=== PATIENT | female | born 1990 | race Caucasian/White ===

== ENCOUNTER 2023-02-24 10:20 | Outpatient (CLI) | payer MEDICAID, SELFPAY | END 2023-02-24 10:21 | disposition home or self-care (01) | PROVIDERS: Visit Provider Advanced Practice Midwife | DX: Z34.91 Encounter for supervision of normal pregnancy, unspecified, first trimester (principal); Z3A.10 10 weeks gestation of pregnancy | CPT/HCPCS: 86592; 86703; 86704; 86706; 86762; 86787; 86803; 86850; 86900; 86901; 87086; 87340 ==

== ENCOUNTER 2023-03-15 14:20 | Outpatient (CLI) | payer MEDICAID, SELFPAY | END 2023-03-15 14:21 | disposition home or self-care (01) | LOC: NFLDREF 14:20 | PROVIDERS: Visit Provider Obstetrics & Gynecology | DX: L65.9 Nonscarring hair loss, unspecified (principal) | CPT/HCPCS: 84443 ==

== ENCOUNTER 2023-05-10 15:39 | Outpatient (CLI) | payer MEDICAID, SELFPAY ==
--- NOTE | 2023-05-10 16:00 | CRLHL7_ITS ---
For Patients: As a result of the Century Cures Act, medical imaging exams and procedure reports are released immediately into your electronic medical record. You may view this report before your referring provider. If you have questions, please contact your health care provider. INDICATION: survey. TECHNIQUE: Conventional transabdominal two-dimensional grayscale ultrasound examination. COMPARISON: None. FINDINGS: There is a living fetus with gestational age of 21 weeks 1 day by LMP and 21 weeks 3 days by today`s measurements. EDC based on LMP is 09/19/2023. BPD: 5.3 cm, 22 weeks Head circumference: 19.1 cm, 21 weeks 3 days Abdominal circumference: 16.4 cm, 21 weeks 3 days Femur length: 3.7 cm, 21 weeks 5 days The weight is estimated at 434 grams, the 68th percentile. The heart rate is measured at 142 beats per minute and the rhythm appears regular. The head and spine are grossly intact. No gross facial abnormality is evident. The upper lip is intact. Four cardiac chambers are demonstrated. The heart and stomach appear to be on the same side. The diaphragm is intact. Two kidneys and a bladder are demonstrated. The cord insertion is normal and three cord vessels are noted. Four extremities are demonstrated. The amniotic fluid volume is within normal limits. The placenta is posterior with no evidence of previa. The cervical length is normal at 3.7 cm. IMPRESSION: 1. Living fetus with gestational age of 21 weeks 1 day by LMP and 21 weeks 3 days by today`s measurements. EDC based on LMP is 09/19/2023. 2. No anomaly evident. Dictated by Dru Moore MD @ 05/11/2023 9:31:22 AM (Electronically Signed)
== END 2023-05-10 15:40 | disposition home or self-care (01) ==
LOC: US 15:40
PROVIDERS: Visit Provider Obstetrics & Gynecology
DX: Z34.92 Encounter for supervision of normal pregnancy, unspecified, second trimester (principal); Z3A.21 21 weeks gestation of pregnancy
CPT/HCPCS: 76805; T1013

== ENCOUNTER 2023-06-28 13:20 | Outpatient (CLI) | payer MEDICAID, SELFPAY | END 2023-06-28 13:21 | disposition home or self-care (01) | LOC: NFLDREF 07-01 06:24 | PROVIDERS: Visit Provider Obstetrics & Gynecology | DX: Z34.93 Encounter for supervision of normal pregnancy, unspecified, third trimester (principal); Z3A.28 28 weeks gestation of pregnancy | CPT/HCPCS: 86592 ==

== ENCOUNTER 2023-08-09 14:14 | Outpatient (CLI) | payer MEDICAID, SELFPAY ==
[2023-08-09 14:32] VITALS: BP 117/75; PULSE 97
[2023-08-09 14:33] VITALS: PULSE 94; O2SAT 98
[2023-08-09 14:45] LABS: Appearance Urine Slightly Cloudy (Clear); Bilirubin Urine Negative (Negative); Blood Urine Negative (Negative); Color Urine Yellow (Yellow); Glucose Urine Negative (Negative); Ketones Urine Negative (Negative); Leukocyte Esterase Urine 1+ (Negative); Nitrite Urine Negative (Negative); Protein Urine Negative (Negative); Urobilinogen Urine 0.2 (0.2-1.0); pH Urine 7.5 (5.0-8.5)
[2023-08-09] MEDS: LACTATED RINGERS 1000 ML 1,000 ML 500 ML IV (15:12)
[2023-08-09 15:19] LABS: RBC Urine 0-2 (0-2)
[2023-08-09 15:20] LABS: Bacteria Urine Few; Squamous Epithelial Cell Urine Few (None-Few)
--- NOTE | 2023-08-09 16:59 | PC.OBNST ---
NST Note NST Note Start: 08/09/23 14:17 Freq: ONCE Status: Active Protocol: Document 08/09/23 16:54 AMARILIS (Rec: 08/09/23 16:59 AMARILIS [id number]) NST Note 3 Para (# of births) 2 EDC 09/19/23 Gestational Age In Weeks & Days 34 Weeks & 1 Days Patient Presented with Complaint(s) of Decreased movement Other Complaints Pt. was seen for visit in [facility] and a variable decel was noted . Pt. had also reported decreased movement. Dr. Cipriano Jamison wanted further monitoring, UA (sent for culture) and IVF's. Reactive Yes Appropriate for Gestational Age Yes ED Wall Date 08/09/23 Reactive Yes Appropriate for Gestational Age Yes ED Evans Date 08/09/23 OB NST charge Yes Complete NST Note via Write Note Yes The provider's electronic signature indicates the NST is reactive/appropriate for gestational age. *Note to provider: If an addendum is required, open the patient's chart and click on the note under the Nurse/Allied Health tab.
== END 2023-08-09 16:45 | disposition home or self-care (01) ==
LOC: OB OUT 14:14 → OB 14:15
PROVIDERS: Visit Provider Obstetrics & Gynecology
DX: O36.8130 Decreased fetal movements, third trimester, not applicable or unspecified (principal); Z3A.34 34 weeks gestation of pregnancy
CPT/HCPCS: 59025; 81001; 81003; 87086; G0463; J7120

== ENCOUNTER 2023-08-26 11:31 | Outpatient (CLI) | payer MEDICAID, SELFPAY ==
[2023-08-27 14:08] LABS: Strep B DNA Probe Negative (Negative)
[2023-08-27 14:50] LABS: Strep B Susceptibility Needed? No
== END 2023-08-26 11:32 | disposition home or self-care (01) ==
LOC: NFLDREF 11:32
PROVIDERS: Visit Provider Obstetrics & Gynecology
DX: Z34.93 Encounter for supervision of normal pregnancy, unspecified, third trimester (principal); Z3A.36 36 weeks gestation of pregnancy
CPT/HCPCS: 87081; 87653

== ENCOUNTER 2023-09-14 10:33 | Inpatient (IN) | payer MEDICAID, SELFPAY ==
[2023-09-14] VITALS (21 sets, daily range): BP systolic 92–164; BP diastolic 60–92; PULSE 86–116; RESP 16; TEMP 36.6–37.1; O2SAT 98–99
--- NOTE | 2023-09-14 10:37 | P.OBHP_ITS ---
OB - H&P: HPI Labor/Induction History of Present Illness Time Seen by Provider: 12:30 Date Seen: 09/14/23 Chief complaint: Maternity Narrative: Aubrie is a 33yo at 39w2d GA admitted for IOL in the setting of nonreactive NST in clinic. is uncomplicated. In clinic, there was tachycardia noted on dopplers which was followed by NST. NST was nonreactive per Dr. Esquivel, where IOL was recommended. Cervix was checked and is 5/80/0. Complete H&P dictated by Dr. Reynoso on 08/31. Aubrie notes feeling well today. She denies regular/painful contractions, vaginal bleeding or leaking of fluids. Endorses active movement. She denies chest pain, dyspnea, dizziness/lightheadedness, fevers/chills, nausea/vomiting, bowel or bladder concerns. Specific Issues/Plans : Sean Leon Needs pap PP. Uncertain when last was and no records available. 1. Desires PP tubal ligation. - Federal tubal consent form: Signed on 06/07/23 - Would like bilateral salpingectomy TDAP:07/13/23 Covid: Declined Flu: 02/24/23 RSV: N/A GBS negative 08/[address] Reynoso 08/31 Labs Blood type: O (+) positive GBS status: negative Meds Home Medications and Allergies Home Medications ?Medication ?Instructions ?Recorded ?Confirmed ?Type vits no.126-ferrous fum 1 tab PO .1qd 02/24/23 09/14/23 History 28 mg iron-folic acid 800 mcg tablet (Classic ) Allergies Allergy/AdvReac Type Severity Reaction Status Date / Time No Known Drug Allergies Allergy Verified 09/14/23 09:24 OB - H&P: Exam Physical Exam: Narrative: General: Alert and oriented, in no acute distress Abdomen: Gravid. Cephalic presentation. Cervix: 5/70/0. After discussion of risks, benefits and alternatives, AROM performed for return of clear fluid. NST: Category 1. Baseline 130bpm, moderate variability, accels present and decels absent. [place]: Irregular contractions. OB - Problem Based A/P Additional Plan (1) : Status: Acute (2) 39 weeks gestation of : Status: Acute Plan Ms. Jeff Brenner is a 33yo at 39w2d GA admitted for IOL in the setting of nonreactive NST at term in the clinic. is uncomplicated. - Cervix on admission is 5/80/0. We discussed methods to induce labor, including AROM vs pitocin. After discussing risks/benefits, patient elected to proceed with AROM - completed without complication. Plan to reassess cervix in 4 hours, discussed pitocin augmentation may be required if regular/painful contractions do not follow AROM. She expressed understanding and is agreeable. - Recommend continuous monitoring in the setting of nonreactive NST earlier, though category 1 FHR tracing on admission. - BT O+ - GBS negative - CBC and T/S pending - Plans tubal, discussed with OR where we will likely schedule this for 0730 tomorrow AM. NPO at midnight.
[2023-09-14 11:14] LABS: Basophils Absolute Auto 0.03 K/uL (0.00-0.30); Basophils Percent Auto 0.3 % (0.0-3.0); Eosinophils Absolute Auto 0.14 K/uL (0.00-0.50); Eosinophils Percent Auto 1.3 % (0.0-7.0); Hematocrit 38.6 % (33.0-51.0); Immature Granulocytes Abs Auto 0.06 K/uL (0.00-0.30); Immature Granulocytes Pct Auto 0.6 %; Lymphocytes Percent Auto 13.7 % (20-44); Mean Corpuscular HGB Conc 34 gm/dL (32-36); Mean Corpuscular Hemoglobin 30 pg (26-34); Mean Corpuscular Volume 90 fL (80-100); Monocytes Percent Auto 7.1 % (0.0-11.0); Platelet Count* 274 K/uL (140-440); RDW Coefficient of Variation % 13.2 % (11.5-15.5); Red Blood Count 4.29 m/uL (4.00-5.20); White Blood Count* 10.65 K/uL (4.50-11.00)
[2023-09-14 11:16] LABS: Slide Review Reflex No
[2023-09-14] MEDS: LACTATED RINGERS 1000 ML 1,000 ML IV (15:35)
[2023-09-14] MEDS: OXYTOCIN 30 unit/500 ML in NS 30 UNIT/500 ML BAG IVPB (16:06)
[2023-09-14] MEDS: LACTATED RINGERS 1000 ML 1,000 ML 125 ML IV (17:41)
[2023-09-14] MEDS: LIDOCAINE 1 % PF 30 ML INJECTION (19:12)
--- NOTE | 2023-09-14 19:44 | W.PM.VAGD1_ITS ---
Procedure Delivery date: 09/14/23 Procedure Done: Global Procedure Details: Procedures Operation Date: 09/15/23 07:45 <No data on this case meets the specified criteria> Intrapartal Events: Labor Induction Delivery augmentation: pitocin Delivery monitor: external FHT Route of delivery: Laceration description: Labial Delivery repair: Vicryl Estimated blood loss (mL): 150 Anesthesia type: Local Disposition: floor Complications: None Narrative: Aubrie is a 33yo at 39w2d GA admitted for IOL in the setting of nonre active NST in clinic. is uncomplicated. She does have bilateral pink eye diagnosed today, started antibiotic eye drops intrapartum. Her labor was induced with AROM and augmented with pitocin. Nautral methods and nitrous oxide were utilized for pain control. heart tones during active labor were category 1, rarely 2. She was anterior lip with an urge to push at 1818 where pushing started at 1821. She was subsequently complete and making good descent with expulsive efforts. She had a at 1857. Baby delivered OA, restituted DAMIEN and the anterior and posterior shoulders delivered without difficulty. No nuchal cord was noted. The cord was clamped and cut after delayed cord clamping. Active management of the third stage was initiated with pitocin and gentle traction on the umbilical cord, and the placenta delivered spontaneous and intact at 1905. Cord gases sent: no Cord blood sent for infant ABO: no Perineum and vagina were inspected, and the following lacerations were noted: 1st degree vaginal laceration (hemostatic) and left labial laceration. Repair was performed with 1% lidocaine (13mL total) with interrupted 4-0 vicryl sutures. Excellent hemostasis was noted, with total EBL of 150cc. All counts were correct. Mother and in stable condition following the .? details: - Lifeborn male fetus - APGARs were 8 and 8 at 1 and 5 minutes respectively - weight pending - Planning to give all medications including erythromycin eye cream. Discussed diligent hand hygiene to prevent conjunctivitis. Gender: Male presentation: vertex Placental Delivery Description: Spontaneous Cord Description: 3 Vessels total score - 1 minute: 8 total score - 5 minute: 8
[2023-09-14] MEDS: CARBOXYMETHYLCELLULOSE (REFRESH PLUS) TEARS 1 DROP EYE-BOTH ×2 (20:04→22:55)
[2023-09-14] MEDS: ACETAMINOPHEN 500 MG TABLET 1000 MG PO (20:10)
[2023-09-14] MEDS: IBUPROFEN 600 MG TABLET PO (22:55)
[2023-09-15] VITALS (22 sets, daily range): BP systolic 80–121; BP diastolic 45–79; PULSE 83–111; RESP 12–18; TEMP 36.6–36.8; O2SAT 97–100
[2023-09-15] MEDS: OXYTOCIN 30 unit/500 ML in NS 30 UNIT/500 ML BAG 300 UNIT IVPB (02:29)
[2023-09-15] MEDS: ACETAMINOPHEN 500 MG TABLET 1000 MG PO ×3 (02:45→20:32)
[2023-09-15] MEDS: CARBOXYMETHYLCELLULOSE (REFRESH PLUS) TEARS 1 DROP EYE-BOTH (02:46)
[2023-09-15 03:47] LABS: Basophils Percent Auto 0.1 % (0.0-3.0); Eosinophils Percent Auto 0.1 % (0.0-7.0); Hematocrit 28.6 % (33.0-51.0); Hemoglobin* 9.5 gm/dL (12.0-16.0); Immature Granulocytes Pct Auto 0.4 %; Lymphocytes Percent Auto 6.7 % (20-44); Mean Corpuscular HGB Conc 33 gm/dL (32-36); Mean Corpuscular Hemoglobin 31 pg (26-34); Mean Corpuscular Volume 92 fL (80-100); Monocytes Percent Auto 4.5 % (0.0-11.0); Neutrophils Percent Auto 88.2 % (42.0-72.0); Platelet Count* 248 K/uL (140-440); RDW Coefficient of Variation % 13.4 % (11.5-15.5); Red Blood Count 3.11 m/uL (4.00-5.20); White Blood Count* 14.88 K/uL (4.50-11.00)
[2023-09-15 03:52] LABS: Slide Review Reflex No
[2023-09-15 04:02] LABS: INR 0.99 (0.91-1.10); Partial Thromboplastin Time* 26 Seconds (23-33); Prothrombin Time 13.7 Seconds
[2023-09-15 04:03] LABS: Fibrinogen* 347 mg/dL (200-450)
[2023-09-15] MEDS: miSOPROStoL 800 MCG/4 TABLET PR (04:05)
--- NOTE | 2023-09-15 04:16 | P.OBPN_ITS ---
OB - PN:Subj Subjective Time Seen by Provider: 04:16 Date Seen: 09/15/23 Narrative: Aubrie is a 33yo seen on PPD1 from following IOL for nonreactive NST. Her delivery was uncomplicated, occurred at about 1900. QBL was 150cc, where mild intermittent lower uterine segment atony was noted during repair of first degree vaginal and left labial laceration but readily responded to fundal massage. She received standard post-delivery pitocin. I was notified at 0310 of increased bleeding. She passed a sizeable clot during , where fundus was noted to be at 2 above uterus but firm. RN described a later episode where she was attempting to ambulate, felt dizzy/lightheaded and subsequently passed a large clot. She had symptomatic hypotension (systolic 90-100smmHg) with no tachycardia at that time, where her symptoms readily improved after laying back down. Repeat VS were reassuring. I requested stat CBC, PT/INR, aPTT, fibrinogen and presented to bedside. On arrival, fundraising director via ipad was utilized for all of conversation. Aubrie notes she is overall feeling well. She notes she felt dizzy and short of breath with attempted ambulation previously, denies any dizziness/lightheadedness, chest pain or dyspnea at rest. She notes no significant abdominal or pelvic pain. Denies nausea/vomiting. UOP via I/O cath has been 125cc since delivery, with an additional unmeasured spontaneous void. Patient is well appearing and lying in bed. VS reviewed and are within normal limits aside from low grade tachycardia - 90s-110bpm during our conversation/evaluation. She does have mild tachycardia at baseline through her hospitalization and course. Heart: Elevated rate, regular rhythm. No rubs, murmurs or gallops. Lungs: Clear to posterior auscultation throughout Abdomen: Soft, nondistended. With fundal massage, 200cc clot was expressed from uterus/vagina. Fundus is firm and at umbilicus. Transabdominal US performed, thin endometrial stripe is noted and image recorded. There is a small blood collection/clot in the lower uterine segment, no doppler flow. TAUS reassuring for state. Images printed to be scanned into record. Pelvic: External genital exam normal. Lacerations are intact and hemostatic. Bimanual massage notable for no WENDY/vaginal clot burden, firm tone. Speculum performed where cervix appears dilated, consistent with known state. No cervical laceration visualized. Rectal cytotec administered. Assessment/Plan: We reviewed the differential for hemorrhage. My assessment is most consistent with intermittent atony, possibly localized to the lower uterine segment based on my TAUS and firm fundal exam. Her perineal lacerations are hemostatic and repairs intact, no evidence of cervical laceration on speculum exam. Placenta was inspected during delivery and appeared intact, delivered spontaneously. TAUS has small clot/blood product in lower segment but no doppler flow to suggest retained products. Total QBL was 150mL with delivery, 1036mL measured since. UOP seems to be adequate, one unmeasured void and 150cc since delivery about 7 hours ago. She is receiving 30U of pitocin in 500mL saline now. Recommend we continue this. 800mcg rectal cytotec administered. Recommend q15m fundal checks with massage and diligent monitoring for ongoing vaginal bleeding/passage of clots. Continue maintenance IVF. Stat labs pending. Patient is NPO for anticipated tubal ligation this morning. Explained if she has uncontrolled bleeding we may postpone or defer procedure for her safety. Given benign exam and reassuring picture overall, we have not cancelled surgery at this time. OB - PN: Obj Exam Physical Exam: Vital signs: Temp Pulse Resp BP Pulse Ox O2 Del Method 98.7 F 109 H 18 110/69 99 Room Air 09/14/23 23:43 09/15/23 03:45 09/15/23 03:45 09/15/23 03:45 09/15/23 03:45 09/15/23 02:37 OB - PN: Obj Data Labs Labs: Laboratory Results - last 24 hr 09/14/23 09/15/23 11:03 03:30 WBC 10.65 14.88 H RBC 4.29 3.11 L Hgb 13.0 9.5 L Hct 38.6 28.6 L MCV 90 92 MCH 30 31 MCHC 34 33 RDW Coeff of Anam 13.2 13.4 Plt Count 274 248 Neut % (Auto) 77.0 H 88.2 H Lymph % (Auto) 13.7 L 6.7 L [place] % (Auto) 7.1 4.5 Eos % (Auto) 1.3 0.1 Baso % (Auto) 0.3 0.1 Neut # (Auto) 8.20 H 13.10 H Lymph # (Auto) 1.50 1.00 [place] # (Auto) 0.80 0.70 Eos # (Auto) 0.14 0.00 Baso # (Auto) 0.03 0.00 Abs Immat Gran (auto) 0.06 0.10 Imm/Tot Granulo (auto) 0.6 0.4 INR 0.99 APTT 26 Fibrinogen 347 Blood Type O Positive Antibody Screen NEGATIVE OB - PN: A/P Delivery Assessment and Plan (1) : Status: Acute (2) 39 weeks gestation of : Status: Acute
[2023-09-15] MEDS: 5 % DEXTROSE/0.45% SOD CHLOR 1,000 ML 125 ML IV (05:04)
[2023-09-15] MEDS: CEFAZOLIN 2 GM INJ IVP (07:55)
[2023-09-15] MEDS: BUPIVACAINE 0.5% 30 ML 20 ML INJECTION (08:13)
--- NOTE | 2023-09-15 08:26 | P.PCN_ITS ---
Procedure Note Time Seen by Provider: 08: Date Seen: 09/15/23 Date of procedure: 09/15/23 Will [facility] bill your pro fee for this procedure?: Yes Procedure: Preoperative diagnosis: []-year-old [] now para [] who desires permanent sterilization, day []. Postoperative diagnosis: Same. Procedure: Mini laparotomy with bilateral salpingectomy Anesthesia: Spinal Surgeon: Aura Lopez MD Shoulder Boner: SHARON Bradley EBL: 10 mL Urine output: 50 mL clear urine IVF: 1000 ml Specimen: Bilateral fallopian tubes to pathology. Tubes were sent separately. Findings: The fundus was noted to be 2 cm below the umbilicus. The uterus, bilateral fallopian tubes and ovaries all appeared normal. Procedure: The patient was taken to the operating room where spinal anesthetic was found to be adequate. She was placed in the dorsal supine position and an exam under anesthesia was performed with findings stated above. She was then prepped and draped in a normal sterile manner. A Self catheter was then placed. 4 mL of 0.5% Marcaine without epinephrine were injected underneath the skin prior to incision. A [] cm partially circular incision was made inferior to the umbilicus. This was carried through to the underlying layer of fascia using bipolar cautery. The fascia was identified, grasped with 2 Sagn clamps and divided with a Cuenca scissors. This incision was extended laterally with Cuenca scissors. The peritoneum was identified and entered bluntly. A small Jesus, self-retaining retractor was placed. portion of the procedure. The patient was placed in a slight Trendelenburg position. The right ovary was grasped and brought to the incision. The fallopian tube was identified and grasped with 2 Alejandra clamps. The fallopian tube was removed by performing serial pedicles with the hand-held LigaSure dissecting forceps. The fallopian tube was removed from the uterus at the cornual aspect. Excellent hemostasis was noted. The left fallopian tube was identified, grasped, and removed in a similar manner. Again excellent hemostasis noted. The fascia was reapproximated using 0 Vicryl in a running manner. The subcutaneous tissue was irrigated with a small amount of saline and bipolar cautery used to obtain hemostasis. No interrupted sutures of 3-0 Vicryl were placed in the subcutaneous tissue to prevent space. The skin was reapproximated using 4-0 Monocryl and a running subcuticular manner. Exofin was applied. The Self catheter was removed prior to the patient being moved to recovery room. The patient tolerated this procedure well. Sponge, lap and instrument counts were correct x2 at the end of the procedure and the patient was taken to the recovery area in stable condition. Patient received 2 g of IV Ancef prior to the procedure.
[2023-09-15] MEDS: PHENYLEPHRINE 100 MCG/ML SYRINGE IVP ×2 (08:43→08:48)
--- NOTE | 2023-09-15 08:43 | W.ANESCHARGE ---
Anesthesia Charges Start Date/Time Anesthesia Start Date: 09/15/23 Anesthesia Start Time: 07:45 Stop Date/Time Anesthesia Stop Date: 09/15/23 Anesthesia Stop Time: 08:42
[2023-09-15] MEDS: LACTATED RINGERS 1000 ML 1,000 ML 200 ML IV (09:05)
--- NOTE | 2023-09-15 09:44 | W.ANESCHARGE ---
Anesthesia Charges Start Date/Time Anesthesia Start Date: 09/15/23 Anesthesia Start Time: 07:45 Stop Date/Time Anesthesia Stop Date: 09/15/23 Anesthesia Stop Time: 08:42
[2023-09-15] MEDS: fentaNYL 100 MCG/2 ML inj 50 MCG IVP (10:03)
[2023-09-15 10:47] LABS: Hemoglobin* 8.2 gm/dL (12.0-16.0)
[2023-09-15] MEDS: LACTATED RINGERS 1000 ML 1,000 ML 125 ML IV ×2 (13:25→20:30)
[2023-09-15] MEDS: DOCUSATE SODIUM 100 MG CAPSULE PO (15:00)
[2023-09-15] MEDS: IBUPROFEN 600 MG TABLET PO ×2 (15:00→22:01)
--- NOTE | 2023-09-15 18:45 | PC.NURSE ---
Nursing Care Hours: [id number] Pt this shift calm and cooperative, alert and oriented. Up with SB assist to bathroom, void x1. Small amount of bloody discharge on pad. changed to small size pad post void. IV fluids infusing. VSS. Pain controlled per eMAR. Auto Rental Clerk used for explaining care activities. Eye drops given bilat eyes.
[2023-09-15 22:48] LABS: Hemoglobin* 7.2 gm/dL (12.0-16.0)
[2023-09-16] VITALS (8 sets, daily range): BP systolic 106–118; BP diastolic 71–77; PULSE 89–103; RESP 16–18; TEMP 36.6–37.2; O2SAT 97–98
[2023-09-16 05:12] LABS: Rapid Plasma Reagin (RPR) Non Reactive (Non Reactive)
[2023-09-16] MEDS: IBUPROFEN 600 MG TABLET PO (05:21)
[2023-09-16 05:28] LABS: Hemoglobin* 7.6 gm/dL (12.0-16.0)
--- NOTE | 2023-09-16 08:18 | P.DS_ITS ---
Documented by User: Kristie Chang CNM 09/16/23 10:27 DS: Providers Provider Date Seen: 09/16/23 Date of admission: 09/14/23 10:33 Primary care physician: Not a Local Provider Admitting Clinician: Penny Armendariz MD Consults: 09/14/23 11:06 Consult to Car [employer] [CONS] Routine Comment: Reason for Consult:: PT Requests Adv Dir Info Attending Physician on discharge: Angela Chang CNM [employer], Laurel Treadwell CNM [employer] Date of Discharge: 09/16/23 DS: Diagnosis Discharge Diagnosis (1) Anemia due to acute blood loss: Status: Acute (2) Status post bilateral salpingectomy: Status: Acute (3) care and examination immediately after delivery: Status: Acute (4) Lactating mother: Status: Acute (5) Conjunctivitis: Status: Acute Exam Narrative: Exam Narrative: GENERAL APPEARANCE:? normal affect, alert, no distress Eyes: Biliateral redness of conjunctiva and subscleral hemorrhages noted. MOOD:? appropriate ABDOMEN:? soft, non-tender the uterine fundus is At Umbilicus, Midline and is appropriate for the stage of recovery. PPTL incision clean, dry and intact, glued PERINEUM:? mild edema of the perineum, Vaginal laceration not inspected EXTREMITIES:? normal and no edema Incision: Healing well, no surrounding erythema, abnormal induration or discharge Const: Vital Signs, click to edit/add: Vital Signs - 24 hr 09/15/23 08:37 09/15/23 08:45 09/15/23 08:50 Temperature 98.2 F Pulse Rate 95 98 91 Pulse Rate [Pulse Oximeter] Respiratory Rate 16 14 14 Blood Pressure 92/45 L 80/46 L 112/65 Blood Pressure [Ri ght Arm] Pulse Oximetry 98 99 100 Oxygen Delivery Me thod Room Air Room Air Room Air 09/15/23 08:55 09/15/23 09:00 09/15/23 09:05 Temperature 98.0 F Pulse Rate 97 98 98 Pulse Rate [Pulse Oximeter] Respiratory Rate 14 12 14 Blood Pressure 93/57 L 101/56 L 106/58 L Blood Pressure [Ri ght Arm] Pulse Oximetry 100 100 100 Oxygen Delivery Me thod Room Air Room Air Room Air 09/15/23 09:10 09/15/23 09:15 09/15/23 09:23 Temperature 98.0 F 98.0 F 98.2 F Pulse Rate 84 89 Pulse Rate [Pulse Oximeter] 83 Respiratory Rate 14 14 16 Blood Pressure 108/58 L 108/67 Blood Pressure [Ri ght Arm] 101/63 Pulse Oximetry 100 100 100 Oxygen Delivery Me thod Room Air Room Air 09/15/23 09:38 09/15/23 09:53 09/15/23 10:09 Temperature 97.9 F Pulse Rate Pulse Rate [Pulse Oximeter] 91 88 86 Respiratory Rate 16 16 16 Blood Pressure Blood Pressure [Ri ght Arm] 115/79 110/73 111/73 Pulse Oximetry 100 100 98 Oxygen Delivery Me thod 09/15/23 10:45 09/15/23 11:28 09/15/23 20:13 Temperature 98 F Pulse Rate Pulse Rate [Pulse Oximeter] 100 100 111 H Respiratory Rate 16 16 18 Blood Pressure Blood Pressure [Ri ght Arm] 107/71 103/64 121/74 Pulse Oximetry 99 97 Oxygen Delivery Me thod Room Air 09/16/23 00:22 09/16/23 00:35 09/16/23 00:39 Temperature 98.6 F 98 F 97.9 F Pulse Rate 97 102 H 90 Pulse Rate [Pulse Oximeter] Respiratory Rate 16 16 16 Blood Pressure 109/72 112/72 106/71 Blood Pressure [Ri ght Arm] Pulse Oximetry 97 98 Oxygen Delivery Me thod 09/16/23 01:03 09/16/23 01:24 09/16/23 01:39 Temperature 98.6 F 97.9 F 98.9 F Pulse Rate 91 Pulse Rate [Pulse Oximeter] 91 Respiratory Rate 18 16 16 Blood Pressure 106/71 112/73 Blood Pressure [Ri ght Arm] 112/72 Pulse Oximetry 98 98 Oxygen Delivery Me thod Room Air 09/16/23 02:18 09/16/23 07:44 Temperature 97.9 F 98.4 F Pulse Rate 103 H Pulse Rate [Pulse Oximeter] 89 Respiratory Rate 16 16 Blood Pressure 118/72 Blood Pressure [Ri ght Arm] 114/77 Pulse Oximetry 98 98 Oxygen Delivery Me thod OB - DS: Summary Hospital Course Hospital Course: The patient is a 33 year old G 3 P 3 at 39w2d weeks gestation that was admitted to the Center on 09/14/23 for IOL for non-reactive NST in clinic. She had an uncomplicated vaginal delivery, but was complicated by PPH. She was transfused one unit in the PP period. She delivered a viable male infant. She is breast and bottle feeding. the patient has done well. No dizziness, chest pain or difficulty voiding or stooling. Pain is well controlled. plan: Discharge home May follow up with if desired Iron supplement and stool softeners to be taken at home, reviewed instructions Peripartum Data delivery method: Vaginal Laceration description: Vaginal - 1st Degree Episiotomy description: Midline Procedures: Procedures Operation Date: 09/15/23 07:45 Actual Procedure Side Surgeon p Post BILATERAL SALPINGECTOMY Bilateral Aura Lopez MD Procedures: tubal ligation/salpingectomy complications: transfusion Gender: Male A Gender: Male Discharge Plan: Home Status at Discharge Functional status at discharge: independent ambulation Time Spent with Patient Time attestation: Total time spent providing and/or coordinating discharge services: Time spent: Less than 30 minutes Discharge Plan Discharge Disposition: Home, Self-Care Date of Admission: 09/14/23 10:33 Attending Provider on Discharge: Kristie Chang Primary Care Provider: Provider,Not a Local Condition: Stable Anticipated Discharge Date/Time: 09/16/23 12:32 Discharge Medications: New Poly-Iron 150 Forte 150-25-1 mg-mcg-mg Capsule 1 cap PO Q OTHER DAY Qty: 30 0RF acetaminophen 500 mg Tablet 1,000 mg PO Q6H PRN (Reason: pain/fever) Qty: 0 0RF docusate sodium 100 mg Capsule 100 mg PO DAILY Qty: 60 0RF ibuprofen 600 mg Tablet 600 mg PO Q6H PRNQty: 0 0RF polymyxin B sulf-trimethoprim 10,000 unit- 1 mg/mL drops 1 drp ophthalmic (eye) Q3H Qty: 10 0RF Continued Classic 28 mg iron- 800 mcg tablet 1 tab PO .1qd Discharge Orders: Discharge Order (Routine); Ordered 09/16/23 Ordered By: Laurel Treadwell Patient Education: OB Over the Counter Medication Information, OB Vaginal/Bottle Feeding, OB Vaginal/Breast Feeding Additional Instructions: Discharge instructions were reviewed with the patient including signs and symptoms of infection and home going medications Nothing vaginally for 6 weeks: no tampons or intercourse Do not drive while taking narcotic pain medication(s) Off Work or School for 6 weeks Symptoms to report to doctor: * Bleeding that saturates more than one pad per hour * Passing clots larger than the size of a golf ball * Pain not relieved by prescribed medication * Fever above 100.4 degrees Fahrenheit * A foul vaginal odor * Difficulty in emotions, mood, and functions * Thoughts of hurting yourself and/or * Painful, reddened area in your breast * Any drainage, redness, or tenderness in your IV/epidural site * Severe headache that doesn't improve after taking medications * Changes in vision, including temporary loss of vision, blurred vision, and/or light sensitivity * Upper abdominal pain (usually under ribs on the right side) * Decrease in urination or painful, frequent urinating * Chest pain * Shortness of breath * Tenderness or pain with redness and/swelling in the calf(s) of your leg 2-week visit: discuss infant feeding concerns, review control options and screen for anxiety/depression. 6-week visit for an annual exam. consultation services are available to all mothers and babies for the first year after delivery.? To make an appointment, please call [phone]. Activity Level: Activity as Tolerated Discharge Diet: Regular Follow Up Appointments: [facility] [Provider Group] (09/29 @ [address] 10/29 @ [address] Armendariz) Forms: [employer] Info Instructions Documented by User: Laurel Treadwell CNM 09/16/23 11:39 DS: Diagnosis Discharge Diagnosis (1) Anemia due to acute blood loss: Status: Acute (2) Status post bilateral salpingectomy: Status: Acute (3) care and examination immediately after delivery: Status: Acute (4) Lactating mother: Status: Acute (5) Conjunctivitis: Status: Acute OB - DS: Summary Hospital Course Hospital Course: The patient is a 33 year old G 3 P 3 at 39w2d weeks gestation that was admitted to the Center on 09/14/23 for IOL for non-reactive NST in clinic. She had an uncomplicated vaginal delivery, but was complicated by PPH. She was transfused one unit in the PP period. She delivered a viable male . She is breast and bottle feeding. the patient has done well. No d izziness, chest pain or difficulty voiding or stooling. Pain is well controlled. plan: Discharge home May follow up with if desired Iron supplement and stool softeners to be taken at home, reviewed instructions Discharge Plan Discharge Disposition: Home, Self-Care Date of Admission: 09/14/23 10:33 Attending Provider on Discharge: Kristie Chang Primary Care Provider: Provider,Not a Local Condition: Stable Anticipated Discharge Date/Time: 09/16/23 12:32 Discharge Medications: New Poly-Iron 150 Forte 150-25-1 mg-mcg-mg Capsule 1 cap PO Q OTHER DAY Qty: 30 0RF acetaminophen 500 mg Tablet 1,000 mg PO Q6H PRN (Reason: pain/fever) Qty: 0 0RF docusate sodium 100 mg Capsule 100 mg PO DAILY Qty: 60 0RF ibuprofen 600 mg Tablet 600 mg PO Q6H PRNQty: 0 0RF polymyxin B sulf-trimethoprim 10,000 unit- 1 mg/mL drops 1 drp ophthalmic (eye) Q3H Qty: 10 0RF Continued Classic 28 mg iron- 800 mcg tablet 1 tab PO .1qd Discharge Orders: Discharge Order (Routine); Ordered 09/16/23 Ordered By: Laurel Treadwell Patient Education: OB Over the Counter Medication Information, OB Vaginal/Bottle Feeding, OB Vaginal/Breast Feeding Additional Instructions: Discharge instructions were reviewed with the patient including signs and symptoms of infection and home going medications Nothing vaginally for 6 weeks: no tampons or intercourse Do not drive while taking narcotic pain medication(s) Off Work or School for 6 weeks Symptoms to report to doctor: * Bleeding that saturates more than one pad per hour * Passing clots larger than the size of a golf ball * Pain not relieved by prescribed medication * Fever above 100.4 degrees Fahrenheit * A foul vaginal odor * Difficulty in emotions, mood, and functions * Thoughts of hurting yourself and/or * Painful, reddened area in your breast * Any drainage, redness, or tenderness in your IV/epidural site * Severe headache that doesn't improve after taking medications * Changes in vision, including temporary loss of vision, blurred vision, and/or light sensitivity * Upper abdominal pain (usually under ribs on the right side) * Decrease in urination or painful, frequent urinating * Chest pain * Shortness of breath * Tenderness or pain with redness and/swelling in the calf(s) of your leg 2-week visit: discuss feeding concerns, review control options and screen for anxiety/depression. 6-week visit for an annual exam. consultation services are available to all mothers and babies for the first year after delivery.? To make an appointment, please call [phone]. Activity Level: Activity as Tolerated Discharge Diet: Regular Follow Up Appointments: [facility] [Provider Group] (09/29 @ [address] 10/29 @ [address] Dr[address] Armendariz) Forms: [employer] Info Instructions
[2023-09-16] MEDS: DOCUSATE SODIUM 100 MG CAPSULE PO (09:46)
== END 2023-09-16 13:06 | disposition home or self-care (01) | DRG 797 ==
PROVIDERS: Obstetrics & Gynecology; Admitting Provider Obstetrics & Gynecology; Visit Provider Obstetrics & Gynecology
PROC: 0UT70ZZ Resection of Bilateral Fallopian Tubes, Open Approach (ICD-10-PCS; CPT 58605; principal; 2023-09-15 07:30)
DX: O76 Abnormality in fetal heart rate and rhythm complicating labor and delivery (principal); D62 Acute posthemorrhagic anemia; Z37.0 Single live birth; O72.1 Other immediate postpartum hemorrhage; O90.81 Anemia of the puerperium; O70.0 First degree perineal laceration during delivery; H10.023 Other mucopurulent conjunctivitis, bilateral; Z30.2 Encounter for sterilization; Z3A.39 39 weeks gestation of pregnancy
CPT/HCPCS: 00851; 36415; 36430; 85018; 85025; 85384; 85610; 85730; 86592; 86850; 86900; 86901; 86922; 88302; T1013; A9270; J0665; J0690; J1100; J1885; J2001; J2250; J2371; J2405; J2704; J3010; J7120; P9016; S5010

== ENCOUNTER 2024-06-05 10:10 | Outpatient (CLI) | payer MEDICAID, SELFPAY ==
[2024-06-06 18:43] LABS: HPV Source Cervical; HPV, High Risk by TMA Not Detected
== END 2024-06-05 10:11 | disposition home or self-care (01) ==
PROVIDERS: Visit Provider Obstetrics & Gynecology
DX: Z12.4 Encounter for screening for malignant neoplasm of cervix (principal)
CPT/HCPCS: 87624; 87625; 88141; 88142